=== PATIENT | female | born 1965 ===

== ENCOUNTER 2017-04-29 13:36 | Observation (INO) | payer OTHER ==
[2017-04-29] MEDS ORDERED: Albuterol-Ipratrop 3 mg / 0.5 (3 ml) UD ONE (13:51)
--- NOTE | 2017-04-29 14:00 | ED PDOC ---
- ECG O2 Sat by Pulse Oximetry: 100
[2017-04-29] MEDS ORDERED: Sodium Chloride 0.9% 500 ML IV STA (14:01)
[2017-04-29] MEDS ORDERED: Albuterol-Ipratrop 3 mg / 0.5 (3 ml) UD IH STA (14:01)
--- NOTE | 2017-04-29 14:03 | ED PDOC ---
HPI: SOB/CHF/COPD Time Seen by Provider: 04/29/17 13:53 Chief Complaint (Nursing): Shortness Of Breath Chief Complaint (Provider): Shortness Of Breath History Per: Patient History/Exam Limitations: no limitations Onset/Duration Of Symptoms: Hrs (prior to arrival) Current Symptoms Are (Timing): Still Present Additional Complaint(s): 51 y/o female presents to the emergency department with a complaint of experiencing shortness of breath described as her chest is closing in, runny nose, and nose congestion a few hours prior to arrival. Reports this is the first time she had experienced these symptoms. Denies chest pain, leg pain, nausea vomiting, diarrhea, abdominal pain, or any long distance travel. No hormone tx. No calf pain. Past Medical History Reviewed: Historical Data, Nursing Documentation, Vital Signs Vital Signs: Last Vital Signs Temp 98.0 F 04/29/17 13:45 Pulse 95 H 04/29/17 13:45 Resp 22 04/29/17 14:01 BP 146/80 04/29/17 13:45 Pulse Ox 100 04/29/17 15:54 - Medical History PMH: Asthma (Mild) - Surgical History Surgical History: No Surg Hx - Family History Family History: States: Unknown Family Hx - Social History Current smoker - smoking cessation education provided: No Alcohol: None Drugs: Denies - Allergies Allergies/Adverse Reactions: Allergies Allergy/AdvReac Type Severity Reaction Status Date / Time No Known Allergies Allergy Verified 04/29/17 13:45 Review of Systems ROS Statement: Except As Marked, All Systems Reviewed And Found Negative ENT: Positive for: Nose Discharge, Nose Congestion Cardiovascular: Negative for: Chest Pain Respiratory: Positive for: Shortness of Breath Gastrointestinal: Negative for: Nausea, Vomiting, Abdominal Pain, Diarrhea Musculoskeletal: Negative for: Leg Pain Physical Exam - Reviewed Nursing Documentation Reviewed: Yes Vital Signs Reviewed: Yes - Physical Exam Appears: Positive for: Non-toxic, No Acute Distress Head Exam: Positive for: ATRAUMATIC, NORMOCEPHALIC Skin: Positive for: Normal Color, Warm, Dry Eye Exam: Positive for: Normal appearance, EOMI, PERRL ENT: Positive for: Nasal Congestion. Negative for: Pharyngeal Erythema Neck: Positive for: Normal, Supple Cardiovascular/Chest: Positive for: Regular Rate, Rhythm. Negative for: Murmur Respiratory: Positive for: Decreased Breath Sounds. Negative for: Accessory Muscle Use, Respiratory Distress Gastrointestinal/Abdominal: Positive for: Normal Exam, Soft. Negative for: Tenderness Back: Positive for: Normal Inspection. Negative for: L CVA Tenderness, R CVA Tenderness Extremity: Positive for: Normal ROM. Negative for: Tenderness, Pedal Edema, Calf Tenderness Neurologic/Psych: Positive for: Alert, Oriented - Laboratory Results Result Diagrams: 04/29/17 14:10 04/29/17 14:10 Interpretation Of Abn Labs: no acute - ECG ECG: Positive for: Interpreted By Me, Viewed By Me ECG Rhythm: Positive for: Nonspecific Changes O2 Sat by Pulse Oximetry: 100 (RA) Pulse Ox Interpretation: Normal - Radiology X-Ray: Read By Radiologist X-Ray Interpretation: No Acute Disease - Progress ED Course And Treament: 1609: Spoke with Dr. Nielsen. Will admit tele obs. Pain free. Needs further eval for atypical chest pain with dyspnea. Medical Decision Making Medical Decision Making: Time: 13:53 Initial impression: Evaluation for dyspnea Initial plan: --Electrocardiogram Stat --B-Type Natriuretic Peptide --COMP Metabolic Panel --Troponin I Stat --EKG-ED (EDNURTX) Stat --CBC w/ differential --D Dimer (COAG) --Partial Thromboplastin Time (COAG) --Prothrombin Time (COAG) --Chest Portable (RAD) --Duoneb 3 ml IH --Methypredisolone 125 mg IVP --Sodium Chloride 500 ml IV 100 mls/hr --Peak Flow PRE/POST TX --Revaluation Scribe Attestation: Documented by Inez Saleem, acting as a scribe for Clyde Montalvo MD. Provider Scribe Attestation: All medical record entries made by the Scribe were at my direction and personally dictated by me. I have reviewed the chart and agree that the record accurately reflects my personal performance of the history, physical exam, medical decision making, and the department course for this patient. I have also personally directed, reviewed, and agree with the discharge instructions and disposition. Disposition - Clinical Impression Clinical Impression: Atypical chest pain, Dyspnea - Patient ED Disposition Is Patient to be Admitted: Yes Counseled Patient/Family Regarding: Studies Performed, Diagnosis - Disposition Disposition Time: 16:11 Condition: STABLE - Pt Status Changed To: Hospital Disposition Of: Observation - POA Present On Arrival: None Core Measure Indicators: Chest Pain
[2017-04-29 14:33] LABS: BASO # 0.1 K/uL (0.0-0.2); BASO % 0.6 % (0.0-2.0); EOS # 0.3 K/uL (0.0-0.7); EOS % 3.9 % (0.0-4.0); HEMATOCRIT 40.2 % (34.0-47.0); LYMPH # 2.1 K/uL (1.0-4.3); LYMPH % 26.4 % (20.0-40.0); MEAN CELL VOLUME 76.6 fl (81.0-99.0); MEAN CORPUSCULAR HEMOGLOBIN 24.9 pg (27.0-31.0); MEAN CORPUSCULAR HGB CONC 32.5 g/dL (33.0-37.0); MEAN PLATELET VOLUME 8.7 fl (7.2-11.7); MONO # 0.6 K/uL (0.0-0.8); MONO % 8.1 % (0.0-10.0); NEUT # 4.8 K/uL (1.8-7.0); RED CELL DISTRIBUTION WIDTH 14.7 % (11.5-14.5); WHITE BLOOD COUNT 7.8 K/uL (4.8-10.8)
[2017-04-29 14:44] LABS: ALB/GLOB RATIO 1.1 (1.0-2.1); ALKALINE PHOSPHATASE 99 U/L (38-126); ALT/SGPT 30 U/L (9-52); AST/SGOT 25 U/L (14-36); BILIRUBIN,TOTAL 0.3 mg/dl (0.2-1.3); BLOOD UREA NITROGEN 16 mg/dl (7-17); CALCIUM 9.4 mg/dL (8.4-10.2); CARBON DIOXIDE 23 mmol/L (22-30); CHLORIDE 103 mmol/L (98-107); GFR AFRICAN-AMERICAN > 60; GLUCOSE,RANDOM 112 mg/dL (65-105); POTASSIUM 3.6 MMOL/L (3.6-5.0); SODIUM 138 mmol/l (132-148); TOTAL PROTEIN 8.4 G/DL (6.3-8.2)
--- NOTE | 2017-04-29 15:01 | RAD ---
HISTORY: dyspnea COMPARISON: No prior. FINDINGS: LUNGS: No active pulmonary disease. PLEURA: No significant pleural effusion identified, no pneumothorax apparent. CARDIOVASCULAR: Heart size is upper limits of normal. OSSEOUS STRUCTURES: No significant abnormalities. VISUALIZED UPPER ABDOMEN: Normal. OTHER FINDINGS: None. IMPRESSION: No active disease.
[2017-04-29 15:21] LABS: PARTIAL THROMBOPLASTIN TIME 29.7 Seconds (25.6-37.1)
[2017-04-29] MEDS ORDERED: Pneumococcal 23-Valent Vaccine IM ONE (21:40)
--- NOTE | 2017-04-30 08:56 | CARD ---
APPROVED REPORT EKG Measurement Heart [id number] <Conclusion> Sinus rhythm with premature atrial complexes in a pattern of bigeminy Narrow P-R interval Nonspecific T wave abnormality Abnormal ECG
[2017-04-30 12:29] VITALS: BP 131/79; PULSE 51; RESP 16; TEMP 97.8; O2SAT 97
--- NOTE | 2017-04-30 16:11 | CP.PCM.HP ---
History of Present Illness - History of Present Illness History of Present Illness: 51 year old female with past medical history of asthma, obesity presented to ED with shortness of breath and chest tightness just ORTHO TECH. Patient was admitted with atypical chest pain associated with dyspnea. Patient was seen and examined at bedside with attending. No acute events overnight. At this time, patient denies chest pain, sob, abdominal pain, headache, palpitations, or fever/ chills. Patient states improvement of symptoms with duoneb treatment in ED. PMD: none Present on Admission - Present on Admission Any Indicators Present on Admission: No Review of Systems - Review of Systems All systems: reviewed and no additional remarkable complaints except (mentioned in HPI) Past Patient History - Past Medical History & Family History Past Medical History?: Yes - Past Social History Smoking Status: Never Smoked - PULMONARY Hx Respiratory Disorders: Yes (Asthma) - MUSCULOSKELETAL/RHEUMATOLOGICAL Hx Falls: No - PSYCHIATRIC Hx Bipolar Disorder: Yes Hx Substance Use: No - SURGICAL HISTORY Hx Orthopedic Surgery: Yes (right knee replacement) - ANESTHESIA Hx Anesthesia Reactions: No Meds Allergies/Adverse Reactions: Allergies Allergy/AdvReac Type Severity Reaction Status Date / Time Penicillins Allergy Unknown RASH Verified 04/29/17 17:36 Physical Exam - Constitutional Appears: Well, Non-toxic, No Acute Distress - Head Exam Head Exam: ATRAUMATIC, NORMAL INSPECTION, NORMOCEPHALIC - Eye Exam Eye Exam: EOMI, Normal appearance - Neck Exam Neck exam: Positive for: Normal Inspection - Respiratory Exam Respiratory Exam: Clear to Auscultation Bilateral, NORMAL BREATHING PATTERN - Cardiovascular Exam Cardiovascular Exam: REGULAR RHYTHM, RRR, +S1, +S2 - GI/Abdominal Exam GI & Abdominal Exam: Normal Bowel Sounds, Soft. absent: Tenderness - Extremities Exam Extremities exam: Positive for: normal inspection. Negative for: calf tenderness - Back Exam Back exam: NORMAL INSPECTION - Neurological Exam Neurological exam: Alert, Oriented x3 - Psychiatric Exam Psychiatric exam: Normal Affect, Normal Mood - Skin Skin Exam: Dry, Intact, Normal Color, Warm Results - Vital Signs Recent Vital Signs: Last Vital Signs Temp 97.8 F 04/30/17 12:28 Pulse 51 L 04/30/17 12:28 Resp 16 04/30/17 12:28 BP 131/79 04/30/17 12:28 Pulse Ox 97 04/30/17 12:28 - Labs Result Diagrams: 04/29/17 14:10 04/29/17 14:10 Labs: Laboratory Results - last 24 hr 04/29/17 04/30/17 18:46 02:15 Troponin I < 0.0120 < 0.0120 Assessment & Plan (1) Atypical chest pain Assessment and Plan: Resolved EKG reviewed, unremarkable No events overnight on telemetry Trop x 3 negative. Patient encouraged to follow up with [employer] and PMD this week for further evaluation Patient to be discharged home with ED precautions Status: Acute
--- NOTE | 2017-05-04 09:36 | CARD ---
APPROVED REPORT EKG Measurement Heart [id number] <Conclusion> Normal sinus rhythm Nonspecific T wave abnormality Abnormal ECG
== END 2017-04-30 14:35 | disposition home or self-care (01) ==
LOC: H.ER 13:36 → H.ERHOLD 16:08 → H.TEL 17:33
PROVIDERS: ADMIT Family Medicine; ATTEND Family Medicine
DX: R07.89 Other chest pain (principal); J45.909 Unspecified asthma, uncomplicated; E66.9 Obesity, unspecified; Z68.41 Body mass index [BMI] 40.0-44.9, adult; Z23 Encounter for immunization; Z96.651 Presence of right artificial knee joint; Z88.0 Allergy status to penicillin